=== PATIENT | female | born 1985 | race Caucasian/White ===

== ENCOUNTER 2018-07-12 19:18 | Emergency (ER) | payer OTHER ==
[~2018-07-12] VITALS: Ht 160 cm; Wt 74.8 kg
[2018-07-12 19:23] VITALS: BP 127/68; Ht 160 cm; Wt 74.8 kg
== END 2018-07-12 21:55 | disposition left against medical advice (07) ==
LOC: ED 19:18
DX: Z53.21 Procedure and treatment not carried out due to patient leaving prior to being seen by health care provider (principal)